=== PATIENT | female | born 1940 | race Caucasian/White ===

== ENCOUNTER → 2024-11-09 19:38 | Outpatient (REF) | payer BC, OTHER, SELFPAY ==
[2024-11-10 16:41] LABS: Urine Albumin Trace (Neg - Trace); Urine Bilirubin Negative (Negative); Urine Character Slightly Cloudy (Clear); Urine Color Yellow; Urine Glucose Negative (Negative); Urine Ketone Negative (Negative); Urine Leukocyte 2+ (Negative); Urine Nitrite Negative (Negative); Urine Occult Blood 1+ (Negative); Urine Urobilinogen Negative (Neg - 1+)
[2024-11-10 17:11] LABS: Urine Bacteria Many (Negative); Urine Red Blood Cell 0-2 /HPF (0-2)
== END ==
LOC: OLABP 19:38
PROVIDERS: ATTENDING PHYSICIAN Family Medicine
DX: S72.001D Fracture of unspecified part of neck of right femur, subsequent encounter for closed fracture with routine healing (principal); M25.559 Pain in unspecified hip; R26.2 Difficulty in walking, not elsewhere classified
CPT/HCPCS: 81003; 81015; 87086

== ENCOUNTER → 2024-11-11 10:30 | Outpatient (REF) | payer BC, OTHER, SELFPAY ==
[2024-11-11 16:53] LABS: % Basophils 0.6 % (0-2); % Eosinophils 3.4 % (0-6); % Immature Granulocytes 0.4 % (0-0.5); % Lymphocytes 14.4 % (20.5-51.1); % Monocytes 11.9 % (1.7-9.3); % Neutrophils 69.3 % (42.2-75.2); Absolute Eosinophils 0.2 10^3/uL (0-0.7); Absolute Monocytes 0.8 10^3/uL (0.1-0.6); Absolute Neutrophils 4.7 10^3/uL (1.4-6.5); Hemoglobin 9.7 g/dL (12.0-16.0); Mean Corp Hgb Conc. 30.3 g/dL (33.0-37.0); Mean Corpuscular Hgb 30.6 pg (27.0-31.0); Mean Corpuscular Volume 100.9 fL (81.0-99.0); Mean Platelet Volume 9.4 fL (7.4-10.4); Nucleated Red Blood Cells % 0 %; Platelet Count 457 10^3/uL (130-400); Red Blood Cell Count 3.17 10^6/uL (4.20-5.40); Red Cell Dist. Width 14.2 % (11.5-14.5); White Blood Cell Count 6.8 10^3/uL (4.8-10.8)
[2024-11-11 16:59] LABS: Blood Urea Nitrogen 17 mg/dl (7-17); Calcium 8.5 mg/dl (8.4-10.2); Carbon Dioxide 26 mmol/L (22-30); Chloride 98 mmol/L (98-107); Glucose 109 mg/dl (70-99); Sodium 132 mmol/L (135-145); eGFR > 60.00
== END ==
LOC: OLABP 10:30
PROVIDERS: ATTENDING PHYSICIAN Family Medicine
DX: S72.001D Fracture of unspecified part of neck of right femur, subsequent encounter for closed fracture with routine healing (principal); M25.559 Pain in unspecified hip; R26.2 Difficulty in walking, not elsewhere classified
CPT/HCPCS: 36415; 80048; 85025

== ENCOUNTER 2024-11-13 03:58 | Emergency (ER) | payer OTHER, BC, SELFPAY ==
[2024-11-13 04:01] VITALS: BP 157/58; BMI 27.0
[2024-11-13 05:00] VITALS: BP 166/65
--- NOTE | 2024-11-13 06:04 | EDRN ---
Patient placed on a bedpan, and now resting comfortably, call pretty in reach.
--- NOTE | 2024-11-13 08:26 | CM ---
Addendum entered by Tashia Clark RN 11/13/24 08:44:
CM spoke with patient's RN at [facility]. RN is willing to accept patient back. CM updated ED physician and bedside RN
Original Note:
CM received consult for discharge. CM contacted admission coordinator at [facility] for further information.
[2024-11-13 08:30] VITALS: BP 155/74
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
--- NOTE | 2024-11-13 10:47 | EDRN ---
Report given to [facility] and LIZABETH Mayes at [facility].
[2024-11-13 10:48] VITALS: BP 150/82
== END 2024-11-13 10:45 ==
LOC: EMR 03:58
PROVIDERS: EMERGENCY PHYSICIAN Emergency Medicine; FAMILY PHYSICIAN Family Medicine
DX: F03.90 Unspecified dementia, unspecified severity, without behavioral disturbance, psychotic disturbance, mood disturbance, and anxiety (principal); I10 Essential (primary) hypertension; E78.00 Pure hypercholesterolemia, unspecified; F41.9 Anxiety disorder, unspecified; Z88.1 Allergy status to other antibiotic agents; Z88.8 Allergy status to other drugs, medicaments and biological substances
CPT/HCPCS: 99283; 81003

== ENCOUNTER → 2024-11-17 09:58 | Outpatient (REF) | payer BC, OTHER, SELFPAY ==
[2024-11-17 11:09] LABS: Blood Urea Nitrogen 17 mg/dl (7-17); Calcium 8.4 mg/dl (8.4-10.2); Carbon Dioxide 31 mmol/L (22-30); Chloride 98 mmol/L (98-107); Glucose 100 mg/dl (70-99); Potassium 3.8 mmol/L (3.5-5.1); Sodium 136 mmol/L (135-145); eGFR 44.08
== END ==
LOC: OLABP 09:58
PROVIDERS: ATTENDING PHYSICIAN Family Medicine
DX: S72.001D Fracture of unspecified part of neck of right femur, subsequent encounter for closed fracture with routine healing (principal); M25.559 Pain in unspecified hip; R26.2 Difficulty in walking, not elsewhere classified
CPT/HCPCS: 36415; 80048

== ENCOUNTER → 2025-05-14 16:51 | Outpatient (REF) | payer BC, OTHER, SELFPAY ==
[2025-05-14 17:36] LABS: Urine Character Clear (Clear)
[2025-05-14 17:44] LABS: Urine Squamous Cell 0-2 /LPF (Few); Urine White Cell 0-2 /HPF (0-5)
== END ==
LOC: OLABPV 16:51
PROVIDERS: ATTENDING PHYSICIAN Family Medicine
DX: R35.0 Frequency of micturition (principal)
CPT/HCPCS: 81003; 81015; 87086

== ENCOUNTER 2025-09-28 21:52 | Emergency (ER) | payer BC, OTHER, SELFPAY ==
[2025-09-28 21:54] VITALS: BP 213/106
[2025-09-28 22:17] LABS: Hematocrit 40.7 % (37.0-47.0); Hemoglobin 13.1 g/dL (12.0-16.0); Mean Corp Hgb Conc. 32.2 g/dL (33.0-37.0); Mean Corpuscular Volume 94.9 fL (81.0-99.0); Nucleated Red Blood Cells % 0 %; Platelet Count 241 10^3/uL (130-400); Red Cell Dist. Width 13.2 % (11.5-14.5)
[2025-09-28 22:44] LABS: ALT (SGPT) 16 U/L (0-35); AST (SGOT) 20 U/L (14-36); Albumin 4.3 g/dl (3.5-5.0); Alkaline Phosphatase 100 U/L (38-126); Blood Urea Nitrogen 21 mg/dl (7-17); Calcium 9.4 mg/dl (8.4-10.2); Carbon Dioxide 28 mmol/L (22-30); Chloride 102 mmol/L (98-107); Glucose 106 mg/dl (70-99); Potassium 3.8 mmol/L (3.5-5.1); Sodium 134 mmol/L (135-145); Total Protein 7.0 g/dl (6.3-8.2); eGFR > 60.00
[2025-09-28 22:55] VITALS: BP 182/78; BMI 32.0
[2025-09-28 23:40] VITALS: BP 207/81
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
[2025-09-29 01:40] VITALS: BP 111/79
[2025-09-29 06:46] VITALS: BP 192/83
[2025-09-29] MEDS: ZOLOFT 50 MG PO (07:40)
[2025-09-29] MEDS: TOPROL XL 50 MG PO (07:40)
[2025-09-29 08:05] VITALS: BP 162/77
== END 2025-09-29 09:15 | disposition home or self-care (01) ==
LOC: EMR 21:52
PROVIDERS: EMERGENCY PHYSICIAN Emergency Medicine; FAMILY PHYSICIAN Family Medicine
DX: Z04.3 Encounter for examination and observation following other accident (principal); W19.XXXA Unspecified fall, initial encounter; I10 Essential (primary) hypertension; E78.00 Pure hypercholesterolemia, unspecified; F03.90 Unspecified dementia, unspecified severity, without behavioral disturbance, psychotic disturbance, mood disturbance, and anxiety; Z90.49 Acquired absence of other specified parts of digestive tract
CPT/HCPCS: 99284; 70450; 72125; 73502; 80053; 85025